=== PATIENT | female | born 1945 | race Caucasian/White ===

== ENCOUNTER 2021-03-22 16:40 | Emergency (ER) | payer MEDICARE ==
[~2021-03-22] VITALS: Ht 167.6 cm; Wt 79.0 kg
--- NOTE | 2021-03-22 16:58 | NUR ---
erp at bs for eval
--- NOTE | 2021-03-22 17:34 | NUR ---
PT TOLERATED STRAIGHT CATH PROCEDURE WELL. NADN/VSS. CALL LIGHT WITHIN REACH
[2021-03-22 17:56] VITALS: BP 120/50
--- NOTE | 2021-03-22 17:56 | NUR ---
Patient is resting comfortably in bed. Bed in lowest, rails engaged, call light on lap. NADN/BILLIES. Daughter at . [facility].
[2021-03-22 18:03] LABS: MICROSCOPIC INDICATED
--- NOTE | 2021-03-22 18:49 | NUR ---
REPORT FROM [employer]PER[employer] OF CARE AT THIS TIME
[2021-03-22] MEDS ORDERED: CEFTRIAXONE 1,000 MG IM ONE (19:00)
[2021-03-22] MEDS ORDERED: CEFTRIAXONE 1,000 MG ONE (19:11)
--- NOTE | 2021-03-22 19:30 | NUR ---
PT MEDICATED PER OCT, 5 RIGHTS VERIFIED.
--- NOTE | 2021-03-22 19:46 | NUR ---
Patient/Caregiver given discharge instructions and they have confirmed that they understand the instructions. NAD, all questions answered appropriately, denies additional needs at this time. No personal belongings left in room after discharge.
== END 2021-03-22 19:46 | disposition home or self-care (01) ==
LOC: ED 17:23
DX: N30.00 Acute cystitis without hematuria (principal); Z86.73 Personal history of transient ischemic attack (TIA), and cerebral infarction without residual deficits
CPT/HCPCS: 51701; 81001; 87077; 87086; 87186; 96372; 99283; J0696; P9612